=== PATIENT | female | born 1945 | race Caucasian/White ===

== ENCOUNTER 2017-09-08 11:38 | Observation (INO) ==
[2017-09-08] MEDS ORDERED: SALINE FLUSH 10ml SYRINGE IVF PRN (11:54)
[2017-09-08] MEDS ORDERED: NS 1,000 ML IV SCH (12:00)
--- NOTE | 2017-09-08 12:12 | CT Scan Report ---
Indication: cva sx PROCEDURE: CT head/brain wo con: Encounter: Initial Comparison: September 17, 2015 Technique: Axial CT images through the head were performed without contrast. Iterative Reconstruction dose reducing technique was utilized. FINDINGS: The ventricles are of normal size, shape, and contour for the patient's age. There is a small area of new low-attenuation in the left occipital lobe on image #21 measuring 0.8 cm in size. There are scattered areas of low attenuation in the white matter which most likely represent changes from chronic microvascular ischemia. The brainstem, cerebellum, and cerebral hemispheres otherwise have a normal morphology and CT attenuation. There is no evidence of midline displacement. No hemorrhage, mass effect, mass lesions, or edema is evident. The visualized portions of the skull base, midface, and calvarium demonstrate no abnormality. The paranasal sinuses are well aerated and free of significant disease. The tympanic and mastoid cavities appear normal. IMPRESSION: No acute intracranial hemorrhage. New small low attenuation focus in the left occipital lobe could represent acute, subacute or chronic ischemia. MRI can be performed for further evaluation of any acute ischemic process. Results were discussed with Dr. Lucero in the emergency department at 1206 on September 08, 2017, 10 minutes after the conclusion of the exam. .
--- OUTSIDE RECORDS SUMMARY | 2017-09-08 12:41 | External Medical Summary | Referral Summary ---
:1945 Author Organization [facility] Address [address] [place] [address] Care Team Providers Name Role Phone Mitul Dipesh Moreland Primary Care Physician Encounter VC Date(s): 09/04/15 - 09/04/15 [facility] [address] [place] [address]- Discharge Diagnosis: Bilateral sensorineural hearing loss Discharge Disposition: 01-Home or Self Care Attending Physician: Aracelis Iqbal Admitting Physician: Aracelis Iqbal Vital Signs No data available for this section Problem List Condition Effective Dates Status Health Status Informant Hay fever(Confirmed) Active Atopic eczema(Confirmed) Active Cataract(Confirmed) Active Chronic otitis media(Confirmed) Active Chronic sinus infection(Confirmed) Active Depression(Confirmed) Active Essential hypertension Active (disorder)(Confirmed) Hypothyroidism (disorder)(Confirmed) Active Hx of insertion of insulin Active pump(Confirmed) IBS (irritable bowel Active syndrome)(Confirmed) Morbid obesity (disorder)(Confirmed) Active Morbid obesity(Confirmed) Active patient Psoriasis(Confirmed) Active Sleep apnea(Confirmed) Active Tobacco user(Confirmed) Active patient Type II diabetes mellitus uncontrolled Active (finding)(Confirmed) Allergies, Adverse Reactions, Alerts No Known Allergies Medications albuterol 2.5 mg/3 mL (0.083%) inhalation solution 1 vials, NEB, QID, as needed for wheezing Start Date: 10/20/14 Status: Orderedantibiotic antibiotic Start Date: 09/04/15 Status: Ordereddoxepin 100 mg oral capsule 100 mg 1 caps, Oral, Bedtime (once a day), # 30 caps, 5 Refill(s), Pharmacy: [id number],1 caps Oral Bedtime (once a day) Start Date: 05/05/15 Status: OrderedDULoxetine 60 mg oral delayed release capsule 60 mg 1 caps, Oral, Daily, PT. WILL NEED A MED. CK. APPT. PRIOR TO NEEDING ADDITIONAL REFILLS., # 90Each, 1 Refill(s), Pharmacy: [facility] [id number], 1 caps Oral Daily,Instr:PT. WILL NEED A MED. CK. APPT. PRIOR TO NEEDING ADDITIONAL REFILLS. Start Date: 10/28/15 Status: OrderedGlucometer (DME) DME Item One Touch UltraLink - check blood sugars 6-8 times per day; Patient has insulin pump, See Instructions, Supply Start Date: 10/20/14 Status: Orderedinsulin isophane (NPH)-insulin regular SubCutaneous, 0 Refill(s) Start Date: 05/11/15 Status: Orderedlisinopril 20 mg oral tablet 20 mg 1 tabs, Oral, Daily, # 30 tabs, 0 Refill(s) Start Date: 10/28/15 Status: OrderedMiscellaneous DME DME Item Nebulizer Kit misc - nebulizer accessories and machine, See Instructions, Supply Start Date: 10/20/14 Status: OrderedPercocet 5/325 oral tablet 1 tabs, Oral, q4hr, as needed for pain, # 30 tabs, 0 Refill(s) Start Date: 01/22/16 Status: OrderedSynthroid 125 mcg, Oral, Daily Start Date: 09/04/15 Status: OrderedZyrTEC 10 mg oral tablet, chewable 1 tabs, Chewed, Daily Start Date: 10/20/14 Status: Ordered Results No data available for this section Immunizations Vaccine Date Refusal Reason influenza virus vaccine, live 09/18/12 pneumococcal 13-valent conjugate vaccine 05/05/15 tetanus-diphth toxoids (Td) adult/adol 12/11/00 zoster vaccine live 05/05/15 Procedures Procedure Date Related Diagnosis Body Site Incision, deep, with opening of bone cortex (eg, 05/26/15 for osteomyelitis or bone abscess), thorax Colonoscopy 01/06/00 Sigmoidoscopy 11/24/99 Appendectomy Bilateral tubal ligation section Cholecystectomy Hysterectomy Social History Social History Type Response Smoking Status Current every day smoker; Type: Cigarettes; Tobacco use per day : More than 1 pack Assessment and Plan No data available for this section
--- OUTSIDE RECORDS SUMMARY | 2017-09-08 12:42 | External Medical Summary | Referral Summary ---
:1945 Author Organization [facility] Address [address] [place] [address] Care Team Providers Name Role Phone Bauman Dipesh Merly Primary Care Physician Encounter VC Date(s): 11/17/15 - 11/17/15 [facility] [address] [place] [address]- Discharge Diagnosis: Eustachian tube dysfunction Discharge Disposition: 01-Home or Self Care Attending Physician: Ciara Barbosa Admitting Physician: Ciara Barbosa Referring Physician: Ephraim De Leon MD Vital Signs No data available for this [...] day), # 30 caps, 5 Refill(s), Pharmacy: [facility] [id number],1 caps Oral Bedtime (once a day) Start Date: 05/05/15 Status: OrderedDULoxetine 60 mg oral delayed release capsule 60 mg 1 caps, Oral, Daily, PT. WILL NEED A MED. CK. APPT. PRIOR TO NEEDING ADDITIONAL REFILLS., # 90Each, 1 Refill(s), Pharmacy: [facility] [id number], 1 caps Oral Daily,Instr:PT. WILL [...] # 30 tabs, 0 Refill(s) Start Date: 05/26/15 Status: OrderedSynthroid 125 mcg, Oral, Daily Start [...]
--- OUTSIDE RECORDS SUMMARY | 2017-09-08 12:42 | External Medical Summary | Referral Summary ---
:1945 Author Organization [facility] Address [address] [place] [address] Care Team Providers Name Role Phone Mitul Dipesh Moreland Primary Care Physician Encounter VC Date(s): 09/04/15 - 09/04/15 [facility] [address] [place] [address] [place] Discharge Diagnosis: ETD (eustachian tube dysfunction) Discharge Diagnosis: History of hyperbaric oxygen therapy Discharge Diagnosis: Chronic osteomyelitis of jaw Discharge Diagnosis: Bleeding from right ear Discharge Disposition: 01-Home or Self Care Attending Physician: Ephraim De Leon MD Admitting Physician: Ephraim De Leon MD Vital Signs [...] day), # 30 caps, 5 Refill(s), Pharmacy: [facility] [id number],1 caps Oral Bedtime (once a day) Start Date: 05/05/15 Status: OrderedDULoxetine 60 mg oral delayed release capsule 60 mg 1 caps, Oral, Daily, PT. WILL NEED A MED. CK. APPT. PRIOR TO NEEDING ADDITIONAL REFILLS., # 90Each, 1 Refill(s), Pharmacy: [facility] [id number], 1 caps Oral Daily,Instr:PT. [...] Procedures Procedure Date Related Diagnosis Body Site Microsurgical techniques, requiring use of 09/04/15 operating microscope (List separately in addition to code for primary procedure).. Microsurgical techniques, requiring use of 10/30/15 operating microscope (List separately in addition to code for primary procedure).. Tympanostomy (requiring insertion of ventilating 09/04/15 tube), local or topical anesthesia.. Incision, deep, with opening of bone cortex (eg, 05/26/15 for osteomyelitis or bone abscess), thorax Colonoscopy 01/06/00 Sigmoidoscopy 11/24/99 Appendectomy Bilateral tubal ligation section Cholecystectomy Hysterectomy Social History Social History Type Response Smoking Status Current every day smoker; Type: Cigarettes; Tobacco use per day : More than 1 pack Assessment and Plan Extracted from: Title: Office Visit Note Author: Ephraim De Leon MD Date: 09/04/15 Assessment/Plan 1.ETD (eustachian tube dysfunction) Plan Return to clinic in a couple of months for re-evaluation. Water precautions were discussed. I recommend using ear plugs with bathing or showering. Also, the use of over the counter ear drying agents i s contraindicated in the presence of ear tubes or tympanic membrane perforations. 2.Bleeding from right ear 3.History of hyperbaric oxygen therapy 4.Chronic osteomyelitis of jaw
--- OUTSIDE RECORDS SUMMARY | 2017-09-08 12:42 | External Medical Summary | Referral Summary ---
:1945 Author Organization [facility] Address [address] [place] [address] Care Team Providers Name Role Phone Bauman Dipesh Moreland Primary Care Physician Encounter VC Date(s): 06/17/15 - 06/17/15 [facility] [address] [place] [address] [place] Discharge Diagnosis: Osteomyelitis Of Mandible Discharge Diagnosis: Jaw swelling Discharge Diagnosis: Osteonecrosis of mandible Discharge Disposition: 01-Home or Self Care Attending [...] day), # 30 caps, 5 Refill(s), Pharmacy: [facility] [id number],1 caps Oral Bedtime (once a day) Start Date: 05/05/15 Status: OrderedDULoxetine 60 mg oral delayed release capsule 60 mg 1 caps, Oral, Daily, PT. WILL NEED A MED. CK. APPT. PRIOR TO NEEDING ADDITIONAL REFILLS., # 90Each, 1 Refill(s), Pharmacy: [facility] [id number], 1 caps Oral Daily,Instr:PT. [...] Note Author: Ephraim De Leon MD Date: 06/17/15 Assessment/Plan 1.Osteomyelitis Of Mandible 2.Osteonecrosis of mandible She has an appointment with Dr. Marquez tomorrow. I gave her the reports for his evaluation. With the necrotic bone noted I do not recommend medical treatment alone. I do recommend she be considered for mandibulectomy and microvascular fibular reconstruction. A detailed discussion of the risks, benefits, and limitations of the procedure was performed with the patient. The patient had the opportunity to ask questions and appeared to understand the pertinent issues. I will also await Dr. Goddard opinion regarding her management. 3.Jaw swelling
--- OUTSIDE RECORDS SUMMARY | 2017-09-08 12:42 | External Medical Summary | Referral Summary ---
:1945 Author Organization [facility] Address [address] [place] [address] Care Team Providers Name Role Phone Bauman Dipesh Moreland Primary Care Physician Encounter VC Date(s): 11/17/15 - 11/17/15 [facility] [address] [place] [address] [place] Discharge Disposition: 01-Home or Self Care Attending [...] day), # 30 caps, 5 Refill(s), Pharmacy: [facility] 2007,1 caps Oral Bedtime (once a day) Start Date: 05/05/15 Status: OrderedDULoxetine 60 mg oral delayed release capsule 60 mg 1 caps, Oral, Daily, PT. WILL NEED A MED. CK. APPT. PRIOR TO NEEDING ADDITIONAL REFILLS., # 90Each, 1 Refill(s), Pharmacy: [facility] [id number], 1 caps Oral Daily,Instr:PT. [...]
--- OUTSIDE RECORDS SUMMARY | 2017-09-08 12:42 | External Medical Summary | Referral Summary ---
:1945 Author Organization [facility] Address [address] [place] [address] Care Team Providers Name Role Phone Mitul Dipesh Moreland Primary Care Physician Encounter VC Date(s): 09/04/15 - 09/04/15 [facility] [address] [place] [address] [place] Discharge Diagnosis: ETD (eustachian [...] pump(Confirmed) IBS (irritable bowel Active syndrome)(Confirmed) Morbid obesity(Confirmed) Active patient Morbid obesity (disorder)(Confirmed) Active Psoriasis(Confirmed) Active Sleep apnea(Confirmed) Active Tobacco user(Confirmed) Active patient Type II diabetes mellitus uncontrolled Active (finding)(Confirmed) Allergies, Adverse Reactions, Alerts No Known Allergies Medications albuterol 2.5 mg/3 mL (0.083%) inhalation solution 1 vials, NEB, QID, as needed for wheezing Start Date: 10/20/14 Status: Orderedantibiotic antibiotic Start Date: 09/04/15 Status: OrderedCiprodex drops, as needed Start Date: 09/04/15 Status: Orderedclindamycin 300 mg oral capsule 300 mg 1 caps, Oral, q8hr, # 30 caps, 0 Refill(s), Pharmacy: [facility] [id number], 1 caps Oral q8hr Start Date: 06/03/15 Status: Ordereddoxepin 100 mg oral capsule 100 mg 1 caps, Oral, Bedtime (once a day), # 30 caps, 5 Refill(s), Pharmacy: [facility] 2428,1 caps Oral Bedtime (once a day) Start Date: 05/05/15 Status: OrderedDULoxetine 60 mg oral delayed release capsule See Instructions, TAKE ONE CAPSULE BY MOUTH ONCE DAILY, # 30 caps, 2 Refill(s), eRx: [facility] [id number], TAKE ONE CAPSULE BY MOUTH ONCE DAILY Start Date: 07/09/15 Status: OrderedGlucometer (DME) DME Item One Touch UltraLink - check blood sugars 6-8 times per day; Patient has insulin pump, See Instructions, Supply Start Date: 10/20/14 Status: Orderedinsulin isophane (NPH)-insulin regular SubCutaneous, 0 Refill(s) Start Date: 05/11/15 Status: Orderedlisinopril 10 mg oral tablet 10 mg 1 tabs, Oral, Daily, # 30 tabs, 0 Refill(s) Start Date: 03/27/15 Status: OrderedMiscellaneous DME DME Item Nebulizer Kit misc - nebulizer accessories and machine, See Instructions, Supply Start Date: 10/20/14 Status: OrderedoxyCODONE-acetaminophen 7.5 mg-325 mg oral tablet 1 tabs, Oral, QID, PRN, # 30 tabs, 0 Refill(s) Start Date: 05/05/15 Status: OrderedPercocet 5/325 oral tablet 1 tabs, [...] vaccine, live 09/18/12 pneumococcal 13-valent conjugate vaccine 6/30/15 tetanus-diphth toxoids (Td) adult/adol 12/11/00 zoster vaccine [...]
--- OUTSIDE RECORDS SUMMARY | 2017-09-08 12:42 | External Medical Summary | Referral Summary ---
:1945 Author Organization [facility] Address [address] [place] [address] Care Team Providers Name Role Phone Dipesh Bauman Primary Care Physician Encounter VC Date(s): 05/11/15 - 05/11/15 [facility] [address] [place] [address]- [place] Discharge Diagnosis: Diabetes Discharge Diagnosis: Osteomyelitis of jaw Discharge Diagnosis: Preoperative clearance Discharge Diagnosis: Swelling of mandible Discharge Disposition: 01-Home or Self Care Attending Physician: Ephraim De Leon MD Admitting Physician: Ephraim De Leon MD Referring Physician: Dipesh Bauman MD Vital Signs Most recent to oldest [Reference Range]: 1 Temperature Tympanic [36.6-38.1 degC] 35.9 degC *LOW* (05/11/15 1:35 PM) Problem List Condition Effective Dates Status Health [...] day), # 30 caps, 5 Refill(s), Pharmacy: [facility] [id number],1 caps Oral Bedtime (once a day) Start Date: 05/05/15 Status: OrderedDULoxetine 60 mg oral delayed release capsule 60 mg 1 caps, Oral, Daily, PT. WILL NEED A MED. CK. APPT. PRIOR TO NEEDING ADDITIONAL REFILLS., # 90Each, 1 Refill(s), Pharmacy: [facility] 2428, 1 caps Oral Daily,Instr:PT. [...] Note Author: Ephraim De Leon MD Date: 05/12/15 Assessment/Plan 1.Swelling of mandible I counseled the patient that a biopsy and jaw culture is needed for further therapy guidance. I recommended a transoral approach to the right mandible with biopsy and possible curettage. A detailed discussion of the risks, benefits, and limitations of the procedure was performed with the patient. The patient had the opportunity to ask questions and appeared to understand the pertinent issues. 2.Osteomyelitis of jaw 3.Diabetes Preoperative clearance Orders: ciprofloxacin, 500 mg 1 tabs, Oral, q12hr, X 10 days, # 20 tabs, 1 Refill(s), Pharmacy: [facility] [id number], 1 tabs Oral q12hr,x10 days
--- OUTSIDE RECORDS SUMMARY | 2017-09-08 12:42 | External Medical Summary | Referral Summary ---
:1945 Author Organization [facility] Address [address] [place] [address] [place] [address] Care Team Providers Name Role Phone Dipesh Bauman Primary Care Physician Encounter VC Date(s): 08/04/15 - 08/04/15 [facility] [address] [place] [address] [place] [address] [place] Discharge Disposition: 01-Home or Self Care Attending Physician: Kailash Rico MD Admitting Physician: Kailash Rico MD Vital Signs No data available for [...] day), # 30 caps, 5 Refill(s), Pharmacy: [id number],1 caps Oral Bedtime (once a day) Start Date: 05/05/15 Status: OrderedDULoxetine 60 mg oral delayed release capsule 60 mg 1 caps, Oral, Daily, PT. WILL NEED A MED. CK. APPT. PRIOR TO NEEDING ADDITIONAL REFILLS., # 90Each, 1 Refill(s), Pharmacy: [facility] 2428, 1 caps Oral [...]
--- OUTSIDE RECORDS SUMMARY | 2017-09-08 12:42 | External Medical Summary | Referral Summary ---
:1945 Author Organization [facility] Address [address] [place] [address] [place] [address] Care Team Providers Name Role Phone Dipesh Bauman Primary Care Physician Encounter VC Date(s): 09/01/15 - 09/01/15 [facility] [address] [place] [address] [place] [address] [place] Discharge Disposition: 01-Home [...] day), # 30 caps, 5 Refill(s), Pharmacy: [facility] [id number],1 caps Oral Bedtime (once a day) Start Date: 05/05/15 Status: OrderedDULoxetine 60 mg oral delayed release capsule 60 mg 1 caps, Oral, Daily, PT. WILL NEED A MED. CK. APPT. PRIOR TO NEEDING ADDITIONAL REFILLS., # 90Each, 1 Refill(s), Pharmacy: [facility] 2428, 1 caps Oral Daily,Instr:PT. [...]
--- OUTSIDE RECORDS SUMMARY | 2017-09-08 12:42 | External Medical Summary | Referral Summary ---
:1945 Author Organization [facility] Address [address] [place] [address] [place] [address] Care Team Providers Name Role Phone Dipesh Bauman Primary Care Physician Encounter VC Date(s): 07/28/15 - 07/28/15 [facility], [address] [place] [address] [place] Discharge Disposition: 01-Home [...] day), # 30 caps, 5 Refill(s), Pharmacy: [facility]14,1 caps Oral Bedtime (once a day) Start Date: 05/05/15 Status: OrderedDULoxetine 60 mg oral delayed release capsule 60 mg 1 caps, Oral, Daily, PT. WILL NEED A MED. CK. APPT. PRIOR TO NEEDING ADDITIONAL REFILLS., # 90Each, 1 Refill(s), Pharmacy: [facility] 2428, 1 caps Oral Daily,Instr:PT. WILL [...]
--- OUTSIDE RECORDS SUMMARY | 2017-09-08 12:42 | External Medical Summary | Referral Summary ---
:1945 Author Organization [facility] Address [address] [place] [address] Care Team Providers Name Role Phone Bauman Dipesh Moreland Primary Care Physician Encounter VC Date(s): 02/16/16 - 02/16/16 [facility] [address] [place] [address] [place] Discharge Disposition: 01-Home or [...] day), # 30 caps, 5 Refill(s), Pharmacy: [facility] 0823,1 caps Oral Bedtime (once a day) Start Date: 05/05/15 Status: OrderedDULoxetine 60 mg oral delayed release capsule 60 mg 1 caps, Oral, Daily, PT. WILL NEED A MED. CK. APPT. PRIOR TO NEEDING ADDITIONAL REFILLS., # 90Each, 1 Refill(s), Pharmacy: [facility] 2428, 1 caps Oral Daily,Instr:PT. [...]
--- OUTSIDE RECORDS SUMMARY | 2017-09-08 12:45 | External Medical Summary | Referral Summary ---
:1945 Author Organization [facility] Address [address] [place] [address] Care Team Providers Name Role Phone Mitul Dipesh Moreland Primary Care Physician Encounter VC Date(s): 05/26/15 - 05/26/15 [facility] [address] [place] [address] [place] Discharge Diagnosis: Jaw mass Discharge Disposition: 01-Home or Self Care Attending Physician: Ephraim De Leon MD Admitting Physician: Ephraim De Leon MD Vital Signs Most recent to oldest [Reference Range]: 1 Temperature Temporal Artery [36.3-37.8 degC] 36.4 degC (05/26/15 8:15 AM) Peripheral Pulse Rate [60-100 bpm] 81 bpm (05/26/15 8:15 AM) Respiratory Rate [14-20 br/min] 16 br/min (05/26/15 8:15 AM) Blood Pressure [90-140/60-90 mmHg] 176/103 mmHg *HI* (05/26/15 8:15 AM) SpO2 93 % (05/26/15 8:15 AM) Problem List Condition Effective Dates Status Health [...] day), # 30 caps, 5 Refill(s), Pharmacy: [facility] [id number],1 caps Oral Bedtime (once a day) Start Date: 05/05/15 Status: OrderedDULoxetine 60 mg oral delayed release capsule 60 mg 1 caps, Oral, Daily, PT. WILL NEED A MED. CK. APPT. PRIOR TO NEEDING ADDITIONAL REFILLS., # 90Each, 1 Refill(s), Pharmacy: [facility]28, 1 caps Oral Daily,Instr:PT. WILL [...] Procedures Procedure Date Related Diagnosis Body Site Excision of lesion of mucosa and submucosa, 05/26/15 vestibule of mouth; with complex repair Excision of lesion of mucosa and submucosa, 05/26/15 vestibule of mouth; with complex repair.. Incision, deep, with opening of bone cortex (eg, 05/26/15 for osteomyelitis or bone abscess), thorax Colonoscopy 01/06/00 Sigmoidoscopy 11/24/99 Appendectomy Bilateral tubal ligation section Cholecystectomy Hysterectomy Social History Social History Type Response Smoking Status Current every day smoker; Type: Cigarettes; Tobacco use per day : More than 1 pack Assessment and Plan Extracted from: Title: Ambulatory Patient Education Author: Ivonne Coyle RN Date: 05/26/15 [facility] [place] [phone] Post Operative Instructions: Call Dr. De Leon's office on Monday, June 01, 2015 for biopsy results and instructions. Activities Ambulate _X_ Unrestricted __ On Crutches as tolerated Yes or No - Weight Bearing Exercise __ None _X_ Light __ Unrestricted Other: Do not strain or lift more than _ lbs. for _ weeks. Diet __ Liquids (Jell-O, soups, etc., if you are nauseated) _X_ Begin with liquids and light foods then progress to regular diet. __ Regular diet __ No alcoholic beverages for 24 hours or while taking pain medication. Personal hygiene __ Bath __ Shower after __ hours __ Sponge Bath __ [facility]s [facility] __ Remove dressing in ___hours __ Change dressing as necessary. __ Keep dressing clean and dry. __ Do not change dressing until you see your doctor. __ Elevate affected area above level of your heart. __ Apply ice to area for ___ hours __ Avoid blowing nose __ Keep water out of ears __ Wear sling as directed. __ Remove drain in ___ hours __ Vaginal rest for ____ days. __ Other: If any problems occur or if you have any further questions, please contact your physician. In an emergency, call [phone] ([phone]), if you cannot reach your physician. If you find that you cannot contact your physician, but feel that your signs and symptoms warrant a physicians attention, go to an Emergency room which is the closest to you. Activities: Call your surgeon promptly if you have: __ Take Tylenol/Advil as needed for discomfort _X_ If fever over _ 102.5 F__ _X_ Prescription given for discomfort. Use as directed. __ Pain not relieved by pain medication __ Prescription given for antibiotic. Follow instructions __ Bleeding or unexpected drainage from on label. Continue taking until medication is gone. incision. _X_ Resume routine medications. _X_ Extreme redness or swelling around incision. Other: __ Inability to urinate by: _X_ Next dose of pain medicine may be given at _ _X_ Persistent nausea and vomiting. (Take with food to prevent stomach upset.) __ Ear drainage more than _ Days __ Stool softener __ Cough develops or difficulty breathing. Do NOT drive or operate hazardous machinery for 24 hours or while taking pain medication. Do not sign any important documents or make important decisions for 24 hours following surgery. When taking pain medicine, be careful as you walk or climb stairs as dizziness is not unusual. Check temperature every four hours during the day for two days. No follow up information was provided.
--- OUTSIDE RECORDS SUMMARY | 2017-09-08 12:45 | External Medical Summary | Referral Summary ---
:1945 Author Organization [facility] Address [address] [place] [address] [place] [address] Care Team Providers Name Role Phone Dipesh Bauman Primary Care Physician Encounter VC Date(s): 10/28/15 - 10/28/15 [facility] [place] [address] [place] Discharge Disposition: 01-Home or Self Care Attending Physician: Dipesh Bauman MD Admitting Physician: Dipesh Bauman MD Vital Signs Most recent to oldest [Reference Range]: 1 Peripheral Pulse Rate [60-100 bpm] 95 bpm (10/28/15 3:44 PM) Blood Pressure [90-140/60-90 mmHg] 174/88 mmHg *HI* (10/28/15 3:44 PM) SpO2 95 % (10/28/15 3:44 PM) Problem List Condition Effective Dates Status [...] day), # 30 caps, 5 Refill(s), Pharmacy: [id number],1 caps Oral Bedtime (once a day) Start Date: 05/05/15 Status: OrderedDULoxetine 60 mg oral delayed release capsule 60 mg 1 caps, Oral, Daily, PT. WILL NEED A MED. CK. APPT. PRIOR TO NEEDING ADDITIONAL REFILLS., # 90Each, 1 Refill(s), Pharmacy: [facility] 2428, 1 caps Oral Daily,Instr:PT. [...]
--- OUTSIDE RECORDS SUMMARY | 2017-09-08 12:46 | External Medical Summary | Referral Summary ---
:1945 Author Organization [facility] Address [address] [place] [address] Care Team Providers Name Role Phone Bauman Dipesh Moreland Primary Care Physician Encounter VC Date(s): 06/03/15 - 06/03/15 [facility] [address] [place] [address]- [place] Discharge Diagnosis: Osteomyelitis Of Mandible Discharge Diagnosis: Chronic cellulitis Discharge Diagnosis: Jaw swelling Discharge Disposition: 01-Home or Self Care Attending [...] day), # 30 caps, 5 Refill(s), Pharmacy: [facility] [id number],1 caps Oral Bedtime (once a day) Start Date: 05/05/15 Status: OrderedDULoxetine 60 mg oral delayed release capsule 60 mg 1 caps, Oral, Daily, PT. WILL NEED A MED. CK. APPT. PRIOR TO NEEDING ADDITIONAL REFILLS., # 90Each, 1 Refill(s), Pharmacy: [facility] 2428, 1 caps Oral [...] Note Author: Ephraim De Leon MD Date: 06/03/15 Assessment/Plan 1.Chronic cellulitis 2.Jaw swelling Osteomyelitis Of Mandible At this point I recommended to the patient that she have a reevaluation by Dr. Marquez. Her clinical presentation is very unusual. She has no trauma history or radiation ex posure or medical adverse effect history. I recommended a head and neck bone scan be performed for evaluation of the extent of osteomyelitis. Return to clinic after her consult with Dr. Marquez.
--- OUTSIDE RECORDS SUMMARY | 2017-09-08 12:46 | External Medical Summary | Referral Summary ---
:1945 Author Organization [facility] Address [address] [place] [address] Care Team Providers Name Role Phone Bauman Dipesh Moreland Primary Care Physician Encounter VC Date(s): 08/16/16 - 08/16/16 [facility] [address] [place] [address] [place] Discharge Disposition: 01-Home or [...] day), # 30 caps, 5 Refill(s), Pharmacy: [facility] 2302,1 caps Oral Bedtime (once a day) Start Date: 05/05/15 Status: OrderedDULoxetine 60 mg oral delayed release capsule See Instructions, TAKE ONE CAPSULE BY MOUTH ONCE DAILY, # 90 caps, eRx: [facility] 2428, TAKEONE CAPSULE BY MOUTH ONCE DAILY Start Date: 05/10/16 Status: OrderedGlucometer (DME) DME Item One [facility] [...]
--- OUTSIDE RECORDS SUMMARY | 2017-09-08 12:46 | External Medical Summary | Referral Summary ---
:1945 Author Organization [facility] Address [address] [place] [address] [place] [address] Care Team Providers Name Role Phone Dipesh Bauman Primary Care Physician Encounter VC Date(s): 08/18/15 - 08/18/15 [facility] [address] [place] [address] [place] [phone] [place] Discharge Disposition: 01-Home [...] day), # 30 caps, 5 Refill(s), Pharmacy: [facility] 2713,1 caps Oral Bedtime (once a day) Start Date: 05/05/15 Status: OrderedDULoxetine 60 mg oral delayed release capsule 60 mg 1 caps, Oral, Daily, PT. WILL NEED A MED. CK. APPT. PRIOR TO NEEDING ADDITIONAL REFILLS., # 90Each, 1 Refill(s), Pharmacy: [facility] 2428, 1 caps Oral Daily,Instr:PT. WILL [...]
--- OUTSIDE RECORDS SUMMARY | 2017-09-08 12:46 | External Medical Summary | Referral Summary ---
:1945 Author [facility] Address [address] [place] [address] [place] [address] Care Team Providers Name Role Phone Dipesh Bauman Primary Care Physician Encounter VC Date(s): 05/07/15 - 05/07/15 [facility] [address] [place] [address]- Discharge Diagnosis: Bone mass Discharge Diagnosis: Acute osteomyelitis Discharge Disposition: 01-Home or Self Care Attending Physician: Dipesh Bauman MD Admitting Physician: Dipesh Bauman MD Vital Signs No data available for [...] day), # 30 caps, 5 Refill(s), Pharmacy: [facility] 4050,1 caps Oral Bedtime (once a day) Start Date: 05/05/15 Status: OrderedDULoxetine 60 mg oral delayed release capsule 60 mg 1 caps, Oral, Daily, PT. WILL NEED A MED. CK. APPT. PRIOR TO NEEDING ADDITIONAL REFILLS., # 90Each, 1 Refill(s), Pharmacy: [facility] 2428, 1 caps Oral Daily,Instr:PT. [...] Extracted from: Title: Ambulatory Patient Education Author: Dipesh aBuman MD Date: 05/09/15 [facility] Bone and Joint Infections Joint infections are called septic or infectious arthritis. An infected joint may damage cartilage and tissue very quickly. This may destroy the joint. Bone infections (osteomyelitis ) may last for year s. Joints may become stiff if left untreated. Bacteria are the most common cause. Other causes include viruses and fungi, but these are more rare. Bone and joint infections usually come from injury or i nfection elsewhere in your body; the germs are carried to your bones or joints through the bloodstream. CAUSES Blood-carried germs from an infection elsewhere in your body can eventually spread to a bone or joint. The germ staphylococcus is the most common cause of both osteomyelitis and septic arthritis. An injury can introduce germs into your bones or joints. SYMPTOMS Weight loss. Tiredness. Chills and fever. Bone or joint pain at rest and with activity. Tenderness when touching the area or bending the joint. Refusal to bear weight on a leg or inability to use an arm due to pain. Decreased range of motion in a joint. Skin redness, warmth, and tenderness. Open skin sores and drainage. RISK FACTORS Children, the elderly, and those with weak immune systems are at increased risk of bone and joint infections. It is more common in people with HIV infections and with people on chemotherapy. People are also at increased risk if they have surgery where metal implants are used to stabilize the bone. Plates, screws, or artificial joints provide a surface that bacteria can stick on. Such a growth of bacte nuvia is called biofilm. The biofilm protects bacteria from antibiotics and bodily defenses. This allows germs to multiply. Other reasons for increased risks include: Having previous surgery or injury of a bone or joint. Being on high-dose corticosteroids and immunosuppressive medications that weaken your body's resistance to germs. Diabetes and long-standing diseases. Use of intravenous street drugs. Being on hemodialysis. Having a history of urinary tract infections. Removal of your spleen (splenectomy ). This weakens your immunity. Chronic viral infections such as HIV or AIDS. Lack of sensation such as paraplegia, quadriplegia, or spina bifida. DIAGNOSIS Increased numbers of white blood cells in your blood may indicate infection. Some times your caregivers are able to identify the infecting germs by testing your blood. Inflammatory markers present in your bloodstream such as an erythrocyte sedimentation rate (ESR or sed rate ) or c-reactive protein (CRP) can be indicators of deep infection. Bone scans and X-ray exams are necessary for diagnosing osteomyelitis. They may help your caregiver find the infected areas. Other studies may give more detailed information. They may help detect f luid collections around a joint, abnormal bone surfaces, or be useful in diagnosing septic arthritis. They can find soft tissue swelling and find excess fluid in an infected joint or the adjacent bone. These tests include: Ultrasound. CT (computerized tomography ). MRI (magnetic resonance imaging ). The best test for diagnosing a bone or joint infection is an aspiration or biopsy. Your caregiver will usually use a local anesthetic. He or she can then remove tissue from a bone injury or use a n eedle to take fluids from an infected joint. A local anesthetic medication numbs the area to be biopsied. Often biopsies are done in the operating room under general anesthesia. This means you will be a sleep during the procedure. Tests performed on these samples can identify an infection. TREATMENT Treatment can help control long-standing infections, but infections may come back. Infections can infect any bone or joint at any age. Bone and joint infections are rarely fatal. Bone infection left untreated can become a never-ending infection. It can spread to other areas of your body. It may eventually cause bone . Reduced limb or joint function can result. In sever e cases, this may require removal of a limb. Spinal osteomyelitis is very dangerous. Untreated, it may damage spinal nerves and cause . The most common complication of septic arthritis is osteoarthritis with pain and decreased range of motion of the joint. Some forms of treatment may include: If the infection is caused by bacteria, it is generally treated with antibiotics. You will likely receive the drugs through a vein (intravenously ) for anywhere from 2 to 6 weeks. In some cases, es pecially with children, oral antibiotics following an initial intravenous dose may be effective. The treatment you receive depends on the: Type of bacteria. Location of the infection. Type of surgery that might be done. Other health conditions or issues you might have. Your caregiver may drain soft tissue abscesses or pockets of fluid around infected bones or joints. If you have septic arthritis, your caregiver may use a needle to drain pus from the joint on a da asia basis. He or she may use an arthroscope to clean the joint or may need to open the joint surgically to remove damaged tissue and infection. An arthroscope is an instrument like a thin lighted telescope. It can be used to look inside the joint. Surgery is usually needed if the infection has become long-standing. It may also be needed if there is hardware (such as metal plates, screws, or artificial joints) inside the patient. Sometimes a bone or muscle graft is needed to fill in the open space. This promotes growth of new tissues and better blood flow to the area. PREVENTION Clean and disinfect wounds quickly to help prevent the start of a bone or joint infection. Get treatment for any infections to prevent spread to a bone or joint. Do not smoke. Smoking decreases healing rates of bone and predisposes to infection. When given medications that suppress your immune system, use them according to your caregiver's instructions. Do not take more than prescribed for your condition. Take good care of your feet and skin, especially if you have diabetes, decreased sensation or circulation problems. SEEK IMMEDIATE MEDICAL CARE IF: You cannot bear weight on a leg or use an arm, especially following a minor injury. This can be a sign of bone or joint infection. You think you may have signs or symptoms of a bone or joint infection. Your chance of getting rid of an infection is better if treated early. Document Released: 10/23/2006 Document Revised: 01/14/2013 Document Reviewed: 09/22/2010 [facility] Patient Information 2014 [employer]. No follow up information was provided. Extracted from: Title: Office Visit Note Author: Dipesh Bauman MD Date: 05/07/15 Assessment/Plan Acute osteomyelitis Restart antibiotics and refer to ENT. Ordered: Office Visit Level 3 Est 65855 Bone mass Ordered: Office Visit Level 3 Est 68625
--- OUTSIDE RECORDS SUMMARY | 2017-09-08 12:47 | External Medical Summary | Referral Summary ---
:1945 Author Organization [facility] Address [address] [place] [address] [place] [id number] Care Team Providers Name Role Phone Dipesh Bauman Primary Care Physician Encounter VC Date(s): 05/05/15 - 05/05/15 [facility] [place] [phone] [place] Discharge Diagnosis: Need for pneumococcal vaccination Discharge Diagnosis: Need for zoster vaccine Discharge Diagnosis: Jaw Pain Discharge Disposition: 01-Home or Self Care Attending Physician: Dipesh Bauman MD Admitting Physician: Dipesh Bauman MD Vital Signs Most recent to oldest [Reference Range]: 1 Blood Pressure [90-140/60-90 mmHg] 152/90 mmHg *HI* (05/05/15 10:22 AM) Problem List Condition Effective Dates Status [...] day), # 30 caps, 5 Refill(s), Pharmacy: [id number],1 caps Oral Bedtime (once a day) Start Date: 05/05/15 Status: OrderedDULoxetine 60 mg oral delayed release capsule 60 mg 1 caps, Oral, Daily, PT. WILL NEED A MED. CK. APPT. PRIOR TO NEEDING ADDITIONAL REFILLS., # 90Each, 1 Refill(s), Pharmacy: [id number], 1 caps Oral Daily,Instr:PT. [...] Daily Start Date: 10/20/14 Status: Ordered Results Hematology Most recent to oldest [Reference Range]: 1 WBC [4.8-10.8 10*3/uL] 8.6 10*3/uL (05/05/15 11:30 AM) RBC [4.00-5.20 10*6/uL] 5.07 10*6/uL (05/05/15 11:30 AM) Hgb [12.0-16.0 gm/dL] 13.9 gm/dL (05/05/15 11:30 AM) Hct [37.0-47.0 %] 44.2 % (05/05/15 11:30 AM) MCV [82.0-99.0 fL] 87.2 fL (05/05/15:30 AM) MCH [27.0-32.0 pg] 27.4 pg (05/05/1530 AM) MCHC [32.0-36.0 gm/dL] 31.4 gm/dL *LOW* (05/05/1530 AM) RDW [11.5-14.5 %] 14.0 % (05/05/15 11:30 AM) Platelet [150-400 10*3/uL] 309 10*3/uL (05/05/15 11:30 AM) MPV [8.8-14.8 fL] 9.9 fL (05/05/1530 AM) Immature Granulocytes [0.0-1.0 %] 0.2 % (05/05/1530 AM) Neutrophils [51-75 %] 66 % (05/05/1530 AM) Lymphocytes [20-46 %] 24 % (05/05/15 11:30 AM) Monocytes [4-11 %] 7 % (05/05/15 11:30 AM) Eosinophils [0-4 %] 3 % (05/05/1530 AM) Basophils [0-2 %] 1 % (05/05/15 11:30 AM) Neutro Absolute [1.90-7.00 10*3] 5.65 10*3 (05/05/15 11:30 AM) Lymph Absolute [0.80-3.30 10*3] 2.04 10*3 (05/05/15 11:30 AM) Griggs Absolute [0.30-1.00 10*3] 0.59 10*3 (05/05/15 11:30 AM) Eos Absolute [0.00-0.50 10*3] 0.28 10*3 (05/05/15 11:30 AM) Baso Absolute [0.00-0.20 10*3] 0.04 10*3 (05/05/15 11:30 AM) Chemistry Most recent to oldest [Reference Range]: 1 Sodium Lvl [135-144 mEq/L] 140 mEq/L (05/05/15 11:30 AM) Potassium Lvl [3.5-5.2 mEq/L] 3.6 mEq/L (05/05/15 11:30 AM) Chloride [99-111 mEq/L] 102 mEq/L (05/05/15 11:30 AM) CO2 [22-31 mEq/L] 32 mEq/L *HI* (05/05/15 11:30 AM) AGAP [3-20] 6 (05/05/15 11:30 AM) BUN [10-20 mg/dL] 9 mg/dL *LOW* (05/05/1530 AM) Glucose Lvl [70-99 mg/dL] 76 mg/dL (05/05/15:30 AM) Creatinine Lvl [0.57-1.11 mg/dL] 0.64 mg/dL (05/05/1530 AM) eGFR [>60 mL/min] >60 mL/min 1 (05/05/15:30 AM) Calcium Lvl [8.9-10.5 mg/dL] 10.0 mg/dL (05/05/15 11:30 AM) Albumin Lvl [3.4-4.8 gm/dL] 4.0 gm/dL (05/05/15 11:30 AM) Total Protein [6.2-8.1 gm/dL] 8.1 gm/dL (05/05/15 11:30 AM) Globulin [1.8-4.0 gm/dL] 4.1 gm/dL *HI* (05/05/15 11:30 AM) ALT [0-55 U/L] 10 U/L (05/05/15 11:30 AM) AST [5-34 U/L] 14 U/L (05/05/15 11:30 AM) Alk Phos [40-150 U/L] 105 U/L (05/05/15 11:30 AM) Bili Total [0.2-1.2 mg/dL] 0.5 mg/dL (05/05/15 11:30 AM) Chol [0-199 mg/dL] 166 mg/dL (05/05/15 11:30 AM) Trig [0-149 mg/dL] 75 mg/dL (05/05/15 11:30 AM) HDL [40-84 mg/dL] 58 mg/dL (05/05/15 11:30 AM) LDL [0-130 mg/dL] 93 mg/dL (05/05/15 11:30 AM) VLDL Cholesterol [0-28 mg/dL] 15 mg/dL (05/05/15 11:30 AM) Cardiac Risk [0.0-5.0] 2.9 (05/05/15 11:30 AM) 1Result Comment: Multiply eGFR results by 1.21 for race. Immunizations Vaccine Date Refusal Reason influenza virus [...] from: Title: Ambulatory Patient Education Author: Dipesh Bauman MD Date: 05/12/15 Allergy Immunization Schedule, Adult Influenza vaccine. All adults should be immunized every year. All adults, including women and people with hives-only allergy to eggs can receive the inactivated influenza (IIV) vaccine. Adults aged 1849 years can receive the recombinant influenza (TAZ) vaccine. The TAZ vaccine does not contain any egg protein. Adults aged 65 years or older can receive the standard-dose IIV or the high-dose IIV. Tetanus, diphtheria, and acellular pertussis (Td, Tdap) vaccine. women should receive 1 dose of Tdap vaccine during each . The dose should be obtained regardless of the length of time since the last dose. Immunization is preferred during the 27th to 36th week of gestation. An adult who has not previously received Tdap or who does not know his or her vaccine status should receive 1 dose of Tdap. This initial dose should be followed by tetanus and diphtheria toxoids (Td) booster doses every 10 years. Adults with an unknown or incomplete history of completing a 3-dose immunization series with Td-containing vaccines should begin or complete a primary immunization series including a Tdap dose. Adults should receive a Td booster every 10 years. Varicella vaccine. An adult without evidence of immunity to varicella should receive 2 doses or a second dose if he or she has previously received 1 dose. females who do not have evidence of immunity should receive the first dose after . This first dose should be obtained before leaving the health care facility. The second dose pura uld be obtained 48 weeks after the first dose. Human papillomavirus (HPV) vaccine. Females aged 1326 years who have not received the vaccine previously should obtain the 3-dose series. The vaccine is not recommended for use in females. However, testing is not needed before receiving a dose. If a female is found to be after receiving a dose, no treatme nt is needed. In that case, the remaining doses should be delayed until after the . Males aged 1321 years who have not received the vaccine previously should receive the 3-dose series. Males aged 2226 years may be immunized. Immunization is recommended through the age of 26 years for any male who has sex with males and did not get any or all doses earlier. Immunization is recommended for any person with an immunocompromised condition through the age of 26 years if he or she did not get any or all doses earlier. During the 3-dose series, the second dose should be obtained 48 weeks after the first dose. The third dose should be obtained 24 weeks after the first dose and 16 weeks after the second dose. Zoster vaccine. One dose is recommended for adults aged 60 years or older unless certain conditions are present. Measles, mumps, and rubella (MMR) vaccine. Adults born before 1954 generally are considered immune to measles and mumps. Adults born in 1954 or later should have 1 or more doses of MMR vaccine unless there is a contraindication to the vaccine or there is laboratory evidence of immunity to each of the three diseases. A routine second dose of MMR vaccine should be obtained at least 28 days after the first dose for students attending postsecondary schools, health care workers, or international travelers. People who received inactivated measles vaccine or an unknown type of measles vaccine during should receive 2 doses of MMR vaccine. People who received inactivated mumps vaccine or an unknown type of mumps vaccine before 1978 and are at high risk for mumps infection should consider immunization with 2 doses of MMR vaccine. For females of childbearing age, rubella immunity should be determined. If there is no evidence of immunity, females who are not should be vaccinated. If there is no evidence of immunity, females who are should delay immunization until after . Unvaccinated health care workers born before [birth year] who lack laboratory evidence of measles, mumps, or rubella immunity or laboratory confirmation of disease should consider measles and mumps immuni zation with 2 doses of MMR vaccine or rubella immunization with 1 dose of MMR vaccine. Pneumococcal 13-valent conjugate (PCV13) vaccine. When indicated, a person who is uncertain of his or her immunization history and has no record of immunization should receive the PCV13 vaccine. An adult aged 19 years or older who has certain medical conditions and has not been previously immunized should receive 1 dose of PCV13 vaccine. This PCV13 should be followed with a dose of pneumo coccal polysaccharide (PPSV23) vaccine. The PPSV23 vaccine dose should be obtained at least 8 weeks after the dose of PCV13 vaccine. An adult aged 19 years or older who has certain medical conditions and previously received 1 or more doses of PPSV23 vaccine should receive 1 dose of PCV13. The PCV13 vaccine dose should be obtain ed 1 or more years after the last PPSV23 vaccine dose. Pneumococcal polysaccharide (PPSV23) vaccine. When PCV13 is also indicated, PCV13 should be obtained first. All adults aged 65 years and older should be immunized. An adult younger than age 65 years who has certain medical conditions should be immunized. Any person who resides in a detention or long-term care facility should be immunized. An adult smoker should be immunized. People with an immunocompromised condition and certain other conditions should receive both PCV13 and PPSV23 vaccines. People with human immunodeficiency virus (HIV) infection should be immunized as soon as possible after diagnosis. Immunization during chemotherapy or radiation therapy should be avoided. Routine use of PPSV23 vaccine is not recommended for [place] Indians, [place] Natives, or people younger than 65 years unless there are medical conditions that require PPSV23 vaccine. When indicated, people who have unknown immunization and have no record of immunization should receive PPSV23 vaccine. One-time revaccination 5 years after the first dose of PPSV23 is recommended for people aged 1964 years who have chronic kidney failure, nephrotic syndrome, asplenia, or immunocompromised conditions. People who received 12 doses of PPSV23 before age 65 years should receive another dose of PPSV23 vaccine at age 65 years or later if at least 5 years have passed since the previous dose. Doses of PPSV23 are not needed for people immunized with PPSV23 at or after age 65 years. Meningococcal vaccine. Adults with asplenia or persistent complement component deficiencies should receive 2 doses of quadrivalent meningococcal conjugate (MenACWY-D) vaccine. The doses should be obtained at least 2 months apart. Microbiologists working with certain meningococcal bacteria, recruits, people at risk during an outbreak, and people who travel to or live in countries with a high rate of meningitis should be immunized. A first-year college student up through age 21 years who is living in a residence jay should receive a dose if he or she did not receive a dose on or after his or her 16th birthday. Adults who have certain high-risk conditions should receive one or more doses of vaccine. Hepatitis A vaccine. Adults who wish to be protected from this disease, have certain high- risk conditions, work with hepatitis A-infected animals, work in hepatitis A research labs, or travel to or work in countries w ith a high rate of hepatitis A should be immunized. Adults who were previously unvaccinated and who anticipate close contact with an international adoptee during the first 60 days after arrival in the [place] from a country with a high rate of hepatitis A should be immunized. Hepatitis B vaccine. Adults who wish to be protected from this disease, have certain high- risk conditions, may be exposed to blood or other infectious body fluids, are household contacts or sex partners of hepatitis B positive people, are clients or workers in certain care facilities, or travel to or work in countries with a high rate of hepatitis B should be immunized. Haemophilus influenzae type b (Hib) vaccine. A previously unvaccinated person with asplenia or sickle cell disease or having a scheduled splenectomy should receive 1 dose of Hib vaccine. Regardless of previous immunization, a recipient of a hematopoietic stem cell transplant should receive a 3-dose series 612 months after his or her successful transplant. Hib vaccine is not recommended for adults with HIV infection. Document Released: 01/12/2005 Document Revised: 02/17/2014 Document Reviewed: 12/10/2013 [facility] Patient Information 2014 [facility]. Family Medicine Blood Glucose Monitoring, Adult Monitoring your blood glucose (also know as blood sugar) helps you to manage your diabetes. It also helps you and your health care provider monitor your diabetes and determine how well your treatment plan is working. WHY SHOULD YOU MONITOR YOUR BLOOD GLUCOSE? It can help you understand how food, exercise, and medicine affect your blood glucose. It allows you to know what your blood glucose is at any given moment. You can quickly tell if you are having low blood glucose (hypoglycemia ) or high blood glucose (hyperglycemia ). It can help you and your health care provider know how to adjust your medicines. It can help you understand how to manage an illness or adjust medicine for exercise. WHEN SHOULD YOU TEST? Your health care provider will help you decide how often you should check your blood glucose. This may depend on the type of diabetes you have, your diabetes control, or the types of medicines you are t aking. Be sure to write down all of your blood glucose readings so that this information can be reviewed with your health care provider. See below for examples of testing times that your health care provider may suggest. Type 1 Diabetes Test 4 times a day if you are in good control, using an insulin pump, or perform multiple daily injections. If your diabetes is not well-controlled or if you are sick, you may need to monitor more often. It is a good idea to also monitor: Before and after exercise. Between meals and 2 hours after a meal. Occasionally between 2:00 to 3:00 am. Type 2 Diabetes It can vary with each person, but generally, if you are on insulin, test 4 times a day. If you take medicines by mouth (orally ), test 2 times a day. If you are on a controlled diet, test once a day. If your diabetes is not well controlled or if you are sick, you may need to monitor more often. HOW TO MONITOR YOUR BLOOD GLUCOSE Supplies Needed Blood glucose meter. Test strips for your meter. Each meter has its own strips. You must use the strips that go with your own meter. A pricking needle (lancet ). A device that holds the lancet (lancing device ). A journal or log book to write down your results. Procedure Wash your hands with soap and water. Alcohol is not preferred. Prick the side of your finger (not the tip) with the lancet. Gently milk the finger until a small drop of blood appears. Follow the instructions that come with your meter for inserting the test strip, applying blood to the strip, and using your blood glucose meter. Other Areas to Get Blood for Testing Some meters allow you to use other areas of your body (other than your finger) to test your blood. These areas are called alternative sites. The most common alternative sites are: The forearm. The thigh. The back area of the lower leg. The palm of the hand. The blood flow in these areas is slower. Therefore, the blood glucose values you get may be delayed, and the numbers are different from what you would get from your fingers. Do not use alternative sites if you think you are having hypoglycemia. Your reading will not be accurate. Always use a finger if you are having hypoglycemia. Also, if you cannot feel your lows (hypoglycemia unawareness ), always use your fingers for your blood glucose checks. ADDITIONAL TIPS FOR GLUCOSE MONITORING Do not reuse lancets. Always carry your supplies with you. All blood glucose meters have a 24-hour "hotline" number to call if you have questions or need help. Adjust (calibrate ) your blood glucose meter with a control solution after finishing a few boxes of strips. BLOOD GLUCOSE RECORD KEEPING It is a good idea to keep a daily record or log of your blood glucose readings. Most glucose meters, if not all, keep your glucose records stored in the meter. Some meters come with the ability to downl oad your records to your home computer. Keeping a record of your blood glucose readings is especially helpful if you are wanting to look for patterns. Make notes to go along with the blood glucose readi ngs because you might forget what happened at that exact time. Keeping good records helps you and your health care provider to work together to achieve good diabetes management. Document Released: 10/25/2004 Document Revised: 06/25/2014 Document Reviewed: 03/17/2014 [facility] Patient Information 2014 [facility]. Diabetes and Foot Care Diabetes may cause you to have problems because of poor blood supply ( circulation ) to your feet and legs. This may cause the skin on your feet to become thinner, break easier, and heal more slowly. You r skin may become dry, and the skin may peel and crack. You may also have nerve damage in your legs and feet causing decreased feeling in them. You may not notice minor injuries to your feet that could lead to infections or more serious problems. Taking care of your feet is one of the most important things you can do for yourself. HOME CARE INSTRUCTIONS Wear shoes at all times, even in the house. Do not go barefoot. Bare feet are easily injured. Check your feet daily for blisters, cuts, and redness. If you cannot see the bottom of your feet, use a mirror or ask someone for help. Wash your feet with warm water (do not use hot water) and mild soap. Then pat your feet and the areas between your toes until they are completely dry. Do not soak your feet as this can dry your skin. Apply a moisturizing lotion or petroleum jelly (that does not contain alcohol and is unscented) to the skin on your feet and to dry, brittle toenails. Do not apply lotion between your toes. Trim your toenails straight across. Do not dig under them or around the cuticle. File the edges of your nails with an emery board or nail file. Do not cut corns or calluses or try to remove them with medicine. Wear clean socks or stockings every day. Make sure they are not too tight. Do not wear knee-high stockings since they may decrease blood flow to your legs. Wear shoes that fit properly and have enough cushioning. To break in new shoes, wear them for just a few hours a day. This prevents you from injuring your feet. Always look in your shoes before you put them on to be sure there are no objects inside. Do not cross your legs. This may decrease the blood flow to your feet. If you find a minor scrape, cut, or break in the skin on your feet, keep it and the skin around it clean and dry. These areas may be cleansed with mild soap and water. Do not cleanse the area with peroxide, alcohol, or iodine. When you remove an adhesive bandage, be sure not to damage the skin around it. If you have a wound, look at it several times a day to make sure it is healing. Do not use heating pads or hot water bottles. They may burn your skin. If you have lost feeling in your feet or legs, you may not know it is happening until it is too late. Make sure your health care provider performs a complete foot exam at least annually or more often if you have foot problems. Report any cuts, sores, or bruises to your health care provider immediately. SEEK MEDICAL CARE IF: You have an injury that is not healing. You have cuts or breaks in the skin. You have an ingrown nail. You notice redness on your legs or feet. You feel burning or tingling in your legs or feet. You have pain or cramps in your legs and feet. Your legs or feet are numb. Your feet always feel cold. SEEK IMMEDIATE MEDICAL CARE IF: There is increasing redness, swelling, or pain in or around a wound. There is a red line that goes up your leg. Pus is coming from a wound. You develop a fever or as directed by your health care provider. You notice a bad smell coming from an ulcer or wound. Document Released: 10/20/2001 Document Revised: 06/25/2014 Document Reviewed: 04/01/2014 [facility] Patient Information 2014 [employer]. No follow up information was provided. Extracted from: Title: Office Visit Note Author: Dipesh Bauman MD Date: 05/05/15 Assessment/Plan Atopic eczema Continue with the current medications. Ordered: Office Visit Level 4 Est 38396 Essential hypertension (disorder) Ordered: Office Visit Level 4 Est 32367 Hypothyroidism (disorder) Ordered: Office Visit Level 4 Est 10837 Jaw Pain Refer to ENT for further evaluation of the mass and will again start treatment with a antibiotic. Ordered: Office Visit Level 4 Est 93005 Morbid obesity (disorder) Ordered: Office Visit Level 4 Est 60831 Need for pneumococcal vaccination Ordered: Office Visit Level 4 Est 49677 Need for zoster vaccine Sleep apnea Ordered: Office Visit Level 4 Est 51938 Type II diabetes mellitus uncontrolled (finding) Ordered: Office Visit Level 4 Est 24065
--- OUTSIDE RECORDS SUMMARY | 2017-09-08 12:47 | External Medical Summary | Referral Summary ---
:1945 Author Organization [facility] Address [address] [place] [address] TOM Gunter [id number] Care Team Providers Name Role Phone Dipesh Bauman Primary Care Physician Encounter VC Date(s): 03/27/15 - 03/27/15 [facility] [address] [place] [address] T[place] Gunter [id number] [id number] Discharge Diagnosis: Periorbital edema Discharge Disposition: 01-Home or Self Care Attending Physician: Don Foster MD Admitting Physician: Don Foster MD Vital Signs Most recent to oldest [Reference Range]: 1 Temperature Tympanic [36.6-38.1 degC] 36.3 degC *LOW* (03/27/15 1:52 PM) Peripheral Pulse Rate [60-100 bpm] 72 bpm (03/27/15 1:52 PM) Respiratory Rate [14-20 br/min] 16 br/min (03/27/15 1:52 PM) Blood Pressure [90-140/60-90 mmHg] 122/84 mmHg (03/27/15 1:52 PM) SpO2 93 % (03/27/15 1:52 PM) Problem List Condition Effective Dates Status [...] q8hr, # 30 caps, 0 Refill(s), Pharmacy: [id number], 1 caps Oral q8hr Start Date: 06/03/15 Status: Ordereddoxepin 100 mg oral capsule 100 mg 1 caps, Oral, Bedtime (once a day), # 30 caps, 5 Refill(s), Pharmacy: [id number],1 caps Oral Bedtime (once a day) Start Date: 05/05/15 Status: OrderedDULoxetine 60 mg oral delayed release capsule See Instructions, TAKE ONE CAPSULE BY MOUTH ONCE DAILY, # 30 caps, 2 Refill(s), eRx: [id number], TAKE ONE CAPSULE BY MOUTH [...] See Instructions, Supply Start Date: 10/20/14 Status: Orderedondansetron 4 mg oral tablet 4 mg 1 tabs, Oral, q4hr, as needed for nausea/vomiting, 0 Refill(s) Start Date: 09/17/15 Status: OrderedoxyCODONE-acetaminophen 7.5 mg-325 mg oral tablet [...] Extracted from: Title: Ambulatory Patient Education Author: Don Foster MD Date: Family Medicine Edema Edema is a buildup of fluids. It is most common in the feet, ankles, and legs. This happens more as a person ages. It may affect one or both legs. HOME CARE Raise (elevate ) the legs or ankles above the level of the heart while lying down. Avoid sitting or standing still for a long time. Exercise the legs to help the puffiness (swelling ) go down. A low-salt diet may help lessen the puffiness. Only take medicine as told by your doctor. GET HELP RIGHT AWAY IF: You develop shortness of breath or chest pain. You cannot breathe when you lie down. You have more puffiness that does not go away with treatment. You develop pain or redness in the areas that are puffy. You have a temperature by mouth above 102 F (38.9 C), not controlled by medicine. You gain 03 lb/1.4 kg or more in 1 day or 05 lb/2.3 kg in a week. MAKE SURE YOU: Understand these instructions. Will watch your condition. Will get help right away if you are not doing well or get worse. Document Released: 04/10/2009 Document Revised: 01/14/2013 Document Reviewed: 04/10/2009 ExitCare Patient Information 2014 [employer], [employer]. Follow Up With: Where: When: Dipesh Bauman [address] [place] [address] Drive; [facility] TOM Torrez [phone] Business (1) Within 3 to 5 days, only if needed Comments: Extracted from: Title: Office Visit Note Author: Don Foster MD Date: 03/27/15 Assessment/Plan Periorbital edema She will continue Zyrtec. She was advised to discontinue lisinopril if she develops any evidence of angioedema elsewhere. She will return to clinic as needed. Ordered: Office Visit Level 3 Est 70243
--- OUTSIDE RECORDS SUMMARY | 2017-09-08 12:48 | External Medical Summary | Referral Summary ---
:1945 Author Organization [facility] Address [address] [place] [address] Care Team Providers Name Role Phone Mitul Dipesh Moreland Primary Care Physician Encounter VC Date(s): 09/04/15 - 09/04/15 [facility] [address] [place] [address]- Discharge Diagnosis: Bilateral sensorineural hearing loss Discharge [...] q8hr, # 30 caps, 0 Refill(s), Pharmacy: [id number], 1 caps Oral q8hr Start Date: 06/03/15 Status: Ordereddoxepin 100 mg oral capsule 100 mg 1 caps, Oral, Bedtime (once a day), # 30 caps, 5 Refill(s), Pharmacy: [id number],1 caps Oral Bedtime (once a day) Start Date: 05/05/15 Status: OrderedDULoxetine 60 mg oral delayed release capsule See Instructions, TAKE ONE CAPSULE BY MOUTH ONCE DAILY, # 30 caps, 2 Refill(s), eRx: [id number], TAKE ONE CAPSULE [...]
--- NOTE | 2017-09-08 13:29 | Magnetic Resonance Report ---
Indication: possible cva PROCEDURE: MR head/brain wo con: Encounter: Initial Comparisons: Head CT from dilated today Technique: Multiplanar, multisequence, MR imaging of the head without contrast was acquired. FINDINGS: Mild motion artifact. Tiny focus of acute diffusion restriction in the periventricular right posterior frontal lobe seen on axial diffusion-weighted image #16. This lesion has corresponding T2/FLAIR hyperintensity measuring 0.8 x 0.5 cm. The left occipital lesion suggested by CT does not have an MR correlate and likely represents artifact from partial volume averaging. The ventricles are of normal size, shape, and contour for the patient's age. There are small nonspecific punctate areas of T2-weighted and T2 FLAIR weighted signal abnormality in the deep frontoparietal white matter that most likely represent small vessel ischemic disease. This is of a degree that is considered to be normal for the patient's age. The brain stem, cerebellum, and cerebral hemispheres otherwise have a normal morphologic appearance as well as MR signal intensity on all pulse sequences. There is no evidence of an intracranial mass lesion, intracranial hemorrhage, or hydrocephalus. The visualized portions of the orbits, calvarium, paranasal sinuses, and skull base demonstrate no significant abnormality. IMPRESSION: Tiny acute infarct in the periventricular right posterior frontal lobe in the MCA territory. .
--- NOTE | 2017-09-08 13:34 | Emergency Department Report ---
General Adult HPI - General Chief complaint: Neuro Symptoms/Deficit Stated complaint: blurred vision,trouble speaking Time Seen by Provider: 09/08/17 11:54 - History of Present Illness HPI narrative: 72-year-old female with sudden onset of slurred speech and blurred vision this morning. This occurred sometime between 8:30 and 10. Her was gone garage sailing and left at approximately 8:30. At the time he left she was normal. She thinks it occurred about 9:30 but is uncertain. She did take an extra antihistamine this morning but is never caused her to be sedated. She feels very tired and sleepy and has been slurring speech she also feels like the words are coming into her head but not processing properly no fever no chills no head trauma. No other body aches or issues. - Related Data Home Medications Medication Instructions Recorded Confirmed Duloxetine HCl 60 mg PO DAILY #0 07/02/15 09/08/17 Doxepin HCl 100 mg PO PRN #30 cap 11/29/16 09/08/17 Augmentin (amoxicillin 875 1 tab PO BID #0 tab 05/23/17 09/08/17 mg-potassium clavulanate 125 mg) tablet Humalog (insulin lispro) 100 1 dose SQ .PUMP 05/23/17 09/08/17 unit/mL SQ Zyrtec (Cetirizine) 10 mg tablet 10 mg PO DAILY tab 05/23/17 09/08/17 levothyroxine 175 mcg tablet 175 mcg PO DAILY tab 05/23/17 09/08/17 lisinopril 20 mg tablet 20 mg PO DAILY tab 05/23/17 09/08/17 Ciprofloxacin/Dexameth Otic 1 drop EACH EYE PRN 09/08/17 09/08/17 [Ciprodex] HydroCHLOROthiazide [Microzide] 12.5 mg PO DAILY 09/08/17 09/08/17 Levothyroxine Tab [Synthroid] 175 mcg PO 2XW 09/08/17 09/08/17 Oxycodone/Acetaminophen 5/325 1 tab PO PRN PRN 09/08/17 09/08/17 [Percocet 5/325] Allergies Allergy/AdvReac Type Severity Reaction Status Date / Time No Known Allergies Allergy Verified 09/08/17 12:13 Review of Systems All systems: reviewed and negative except as stated [facility] Medical History (Last Reviewed 06/06/17 @ 14:07 by Driss Kapoor MD) Diabetes mellitus type 2, uncontrolled, without complications (Chronic Medical ~ 2002) Appears to need more supper insulin. Diabetic nephropathy associated with type 2 diabetes mellitus (Chronic Medical) Need to recheck albuminuria. Callus of foot (Chronic Medical) Needs more emollient. senior living current use of insulin (Chronic Medical) Hypothyroidism (Chronic Medical ~1994) Hypertension (Chronic Medical) Good control. Morbid obesity with BMI of 40.0-44.9, adult (Chronic Medical) Family History: Family History (Last Reviewed 06/06/17 @ 14:07 by Driss Kapoor MD) Father , 1994 Lung cancer Mother Heart disease Thyroid disease Paternal Uncle Diabetes Sister Rheumatoid arthritis Thyroid disease Sister Rheumatoid arthritis - Social History Smoking status: Current every day smoker Physical Exam - Limitations Limitations: no limitations - General General appearance: lethargic - Normal Exams: Head:: Normocephalic without trauma Chest/Respirations:: Clear all crooks, with good airflow, and symmetry bilaterally Cardiovascular:: Regular rate and rhythm, without murmur or gallop, Pulses 2+ all extremities, capillary refill, <2 seconds all extremities Abdomen:: Bowel sounds positive, soft, non-tender, non-distended, no hepatosplenomegaly, masses or bruits noted Neurological:: and oriented, cranial nerves, motor/sensory/cerebellar, exams w/ o gross deficits, to observation - Neurological Exam Neurological exam: Present: oriented X3, CN II-XII intact, reflexes normal, other (patient's speech is slurred and she is definitely exhibiting moderate sedation/fatigue). Absent: motor sensory deficit Course Vital Signs Temperature 98.2 F 09/08/17 11:40 Pulse Rate 87 09/08/17 11:40 Respiratory Rate 18 09/08/17 11:40 Blood Pressure 147/68 H 09/08/17 11:40 Pulse Oximetry 93 09/08/17 11:40 Temperature 98.2 F 09/08/17 11:40 Pulse Rate 81 09/08/17 12:30 Respiratory Rate 15 09/08/17 12:30 Blood Pressure 130/67 09/08/17 12:30 Pulse Oximetry 92 09/08/17 12:30 Medical Decision Making - [facility] Narrative Medical decision making narrative: Labs returned normal, CT shows possible posterior parietal/occipital punctate lesion. MRI does show small effusion. Teleneurology was consult and based on improvement in her exam and timing, recommendation was not to give TPA. I certainly many agreement with that as well this point. Patient are aware that decision. She is being evaluated by hospitalist for possible hospital admission. - Lab Data Result diagrams: 09/08/17 11:58 09/08/17 11:58 Lab Results 09/08/17 09/08/17 09/08/17 Range/Units 11:58 11:58 13:19 WBC 8.1 (4.5-11.0) T/MM3 RBC 4.45 (4.00-5.20) M/MM3 Hgb 12.0 (12-16) GM/DL Hct 39.0 (36-46) % MCV 87.6 (80-100) UM3 MCH 27.0 (26-34) UUG MCHC 30.8 L (31-37) GM/DL RDW Std Deviation 40.3 (36.9-50.2) FL Plt Count 367 (130-400) T/MM3 MPV 9.1 L (9.4-12.4) UM3 Immature Gran % (Auto) 0.2 (0.0-0.5) % Neut % (Auto) 72.4 H (33-66) % Lymph % (Auto) 18.3 L (23-45) % [place] % (Auto) 5.9 (0-9.0) % Eos % (Auto) 3.0 (0-4) % Baso % (Auto) 0.2 (0-2) % Neut # (Auto) 5.8 (1.8-7.7) T/MM3 Lymph # (Auto) 1.5 (1-4.8) T/MM3 [place] # (Auto) 0.5 (0-0.8) T/MM3 Eos # (Auto) 0.2 (0-0.5) T/MM3 Baso # (Auto) 0.0 (0-0.2) T/MM3 Abs Immat Gran (auto) 0.02 (0.00-0.03) T/MM3 Turbidity < 20 (0-20) Sodium 137 (134-144) MEQ/L Potassium 4.0 (3.6-5) MEQ/L Chloride 98 (98-107) MEQ/L Carbon Dioxide 34 H (22-30) MEQ/L Anion Gap 5 (5-15) MEQ/L BUN 8.0 (7-17) MG/DL Creatinine 0.6 L (0.7-1.2) MG/DL GFR Calculation 99 BUN/Creatinine Ratio 13 (6-26) RATIO Glucose 185 H (65-110) MG/DL Calculated Osmolality 267 (261-280) MOSM/KG Calcium 9.6 (8.4-10.2) MG/DL Total Bilirubin 0.50 (0.20-1.30) MG/DL Icterus Index < 2 (0-7) AST 18 (14-36) U/L ALT 24 (9-52) U/L Alkaline Phosphatase 105 (38-126) U/L Troponin I < 0.012 (0-0.12) ng/ml Total Protein 8.7 H (6.3-8.2) G/DL Albumin 4.3 (3.5-5.0) G/DL Globulin 4.4 H (2.4-3.6) G/DL Albumin/Globulin Ratio 1.0 L (1.1-2.2) RATIO Specimen Hemolysis < 15 (0-25) Ur Collection Type Urine, catheter Urine Color Yellow (YELLOW) Urine Clarity Sl cloudy Urine pH 7.0 (5.0-8.0) Ur Specific [place] <=1.005 L (1.015-1.025) Urine Protein Negative (NEGATIVE) Urine Glucose (UA) Negative (NEGATIVE) Urine Ketones Negative (NEGATIVE) Urine Occult Blood 2+ A (NEGATIVE) Urine Nitrate Negative (NEGATIVE) Urine Bilirubin Negative (NEGATIVE) Urine Urobilinogen 0.2 (NORMAL) EU/DL Ur Leukocyte Esterase Negative (NEGATIVE) Disposition Prescriptions: No Action Doxepin HCl 100 mg PO PRN #30 cap HydroCHLOROthiazide [Microzide] 12.5 mg PO DAILY Ciprofloxacin/Dexameth Otic [Ciprodex] 1 drop EACH EYE PRN Duloxetine HCl 60 mg PO DAILY #0 Levothyroxine Tab [Synthroid] 175 mcg PO 2XW Oxycodone/Acetaminophen 5/325 [Percocet 5/325] 1 tab PO PRN PRN PRN Reason: Pain levothyroxine 175 mcg tablet 175 mcg PO DAILY tab lisinopril 20 mg tablet 20 mg PO DAILY tab Zyrtec (Cetirizine) 10 mg tablet 10 mg PO DAILY tab Humalog (insulin lispro) 100 unit/mL SQ 1 dose SQ .PUMP Augmentin (amoxicillin 875 mg-potassium clavulanate 125 mg) tablet 1 tab PO BID #0 tab Referrals: Flavio Kapadia MD [Family Provider] - - Seen By: physician
[2017-09-08] MEDS ORDERED: ACETAMINOPHEN 325 MG TABLET PO PRN (14:26)
[2017-09-08 14:42] VITALS: BMI 42.4
--- NOTE | 2017-09-08 14:44 | History & Physical Report ---
<Mame Mckenzie V - Last Filed: 09/08/17 14:59> History of Present Illness Date: 09/08/17 Chief complaint: Slurred speech, Vision changes HPI: Mara is a 72 year old female who has a sudden onset of slurred speech and vision trouble this morning between 830 and 10 a.m. left the home at approximately 830 and when he returned before 10am found patient to have a change in speech with increased lethargy. Patient was then brought to the emergency room for further evaluation and treatment. CBC is normal, chemistry panel, overall unremarkable, troponin negative, urinalysis with 2+ blood, 5-10 rbc's and 3+ bacteria. Twelve-lead EKG does show sinus rhythm with first-degree AV block. Initial CT of the brain did not show any intracranial hemorrhage, however, did show a small area in the left occipital lobe which was suspicious for acute ischemia. This was followed by an MRI of the brain that did reveal an acute infarct in the right posterior frontal lobe in the MCA territory. Mara is seen while in the ER. She is alert however is drowsy and falls asleep during conversation and exam. Patient's reports that she did take doxepin 100 milligrams that she uses when necessary. Initially he thought her level of sedation, and slurred speech, was related to this medication. However, he thinks that she has had this medication in the past without this effect. Patient does wish to be a Full Code. 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 Appendectomy. . 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 Medications Home Medications Medication Instructions Recorded Confirmed Type Duloxetine HCl 60 mg PO DAILY #0 07/02/15 09/08/17 History Doxepin HCl 100 mg PO PRN #30 cap 11/29/16 09/08/17 History Augmentin (amoxicillin 875 1 tab PO BID #0 tab 05/23/17 09/08/17 History mg-potassium clavulanate 125 mg) tablet Humalog (insulin lispro) 100 1 dose SQ .PUMP 05/23/17 09/08/17 History unit/mL SQ Zyrtec (Cetirizine) 10 mg tablet 10 mg PO DAILY tab 05/23/17 09/08/17 History levothyroxine 175 mcg tablet 175 mcg PO DAILY tab 05/23/17 09/08/17 History lisinopril 20 mg tablet 20 mg PO DAILY tab 05/23/17 09/08/17 History Ciprofloxacin/Dexameth Otic 1 drop EACH EYE PRN 09/08/17 09/08/17 History [Ciprodex] HydroCHLOROthiazide [Microzide] 12.5 mg PO DAILY 09/08/17 09/08/17 History Levothyroxine Tab [Synthroid] 175 mcg PO 2XW 09/08/17 09/08/17 History Oxycodone/Acetaminophen 5/325 1 tab PO PRN PRN 09/08/17 09/08/17 History [Percocet 5/325] Allergies Allergy/AdvReac Type Severity Reaction Status Date / Time No Known Allergies Allergy Verified 09/08/17 12:13 Exam Vital Signs: Temperature 97.8 F 09/08/17 14:26 Pulse Rate 79 09/08/17 14:26 Respiratory Rate 18 09/08/17 14:26 Blood Pressure 130/67 09/08/17 12:30 Pulse Oximetry 92 09/08/17 14:26 Height/Weight/BMI: Height 1.55 m Weight 101.8 kg Body Mass Index 42.4 - Constitutional Present: no acute distress, well nourished, well developed - Routine HEENT Exam Eye: Present: EOMI ENT: Present: mucous membranes moist, dentition normal - Routine Respiratory Exam Present: CTA bilaterally. Absent: wheezes - Routine Cardiovascular Exam Present: RRR, S1, S2. Absent: murmur - Routine Abdominal Exam Present: soft, normoactive bowel sounds, non distended. Absent: tenderness - Routine Extremities Exam Present: edema (Chronic lower extremity edema, chronic discoloration of bilateral lower extremity edema), pulses intact - Routine Back/Spine/Pelvis Exam Back/Spine: Present: full ROM - Routine Skin Exam Present: intact, dry, warm - Routine Neurological Exam Present: alert, oriented X3, CN II-XII intact, moving all extremities, vision grossly intact, hearing grossly intact. Absent: sensory deficit, motor deficit - Routine Psychiatric Exam Present: normal affect, cooperative Results - Labs CBC & Chem 7: 09/08/17 11:58 09/08/17 11:58 Assessment and Plan (1) Acute CVA (cerebrovascular accident) Current visit: Yes Status: Acute Assessment and Plan: Impression Acute CVA Slurred speech Diabetes- Insulin Pump Peripheral neuropathy Chronic osteomyelitis of the jaw bone- On Augmentin Hypothyroidism Hypertension Morbid obesity Plan Admit patient to outpatient observation under care of Dr. Rossi for acute CVA with slurred speech Consult placed to PT, OT and speech for acute evaluation Obtain echocardiogram, bilateral carotid Doppler and lipid panel for further acute workup. Monitor Accu-Cheks. Given patient's history of diabetes. Last HgbAIC was in 04.07. She has a insulin pump, and is followed by Dr. Kapoor routinely. Patient is chronically on Augmentin for long-term treatment of osteomyelitis of her mandible. Monitor patient. Cardiac telemetry SCDs to bilateral lower extremity for DVT prophylaxis Continue home medications, her blood pressure control and continue on lisinopril , and hydrochlorothiazide April does wish to be a full code and this orders written. Will discuss further orders and plan of care with attending, Dr. Rossi. At time of discharge medical care will return to primary care provider, Dr. Kapadia DVT Prophylaxis: SCD's Resuscitation Status: Full Code Hospital Course Summary Disclaimer: The visit summary below is not to be considered part of the above Progress Note. Hospital Course: 09/08/17 Impression Acute CVA Slurred speech Diabetes- Insulin Pump Peripheral neuropathy Chronic osteomyelitis of the jaw bone- On Augmentin Hypothyroidism Hypertension Morbid obesity Plan Admit patient to outpatient observation under care of Dr. Rossi for acute CVA with slurred speech Consult placed to PT, OT and speech for acute evaluation Obtain echocardiogram, bilateral carotid Doppler and lipid panel for further acute workup. Monitor Accu-Cheks. Given patient's history of diabetes. Last HgbAIC was in June 11.2. She has a insulin pump, and is followed by Dr. Kapoor routinely. Patient is chronically on Augmentin for long-term treatment of osteomyelitis of her mandible. Monitor patient. Cardiac telemetry SCDs to bilateral lower extremity for DVT prophylaxis Continue home medications, her blood pressure control and continue on lisinopril , and hydrochlorothiazide April does wish to be a full code and this orders written. Will discuss further orders and plan of care with attending, Dr. Rossi. At time of discharge medical care will return to primary care provider, Dr. Kapadia <Chris Rossi D - Last Filed: 09/08/17 16:39> History of Present Illness Date: 09/08/17 [facility] Patient Stated Medical History Cerebrovascular Accident Yes Cataracts Yes Other HEENT Yes: infection of right jawbone Hypertension Yes Diabetes Mellitus Type 2 Yes Clinic Medical History (Last Reviewed 06/06/17 @ 14:07 by Driss Kapoor MD) Acute CVA (cerebrovascular accident) (Acute Medical) Diabetes mellitus type 2, uncontrolled, without complications (Chronic Medical ~ 2002) Appears to need more supper insulin. Diabetic nephropathy associated with type 2 diabetes mellitus (Chronic Medical) Need to recheck albuminuria. Callus of foot (Chronic Medical) Needs more emollient. detention current use of insulin (Chronic Medical) Hypothyroidism (Chronic Medical ~1994) Hypertension (Chronic Medical) Good control. Morbid obesity with BMI of 40.0-44.9, adult (Chronic Medical) Family History: Family History (Last Reviewed 06/06/17 @ 14:07 by Driss Kapoor MD) Father , 1994 Lung cancer Mother Heart disease Thyroid disease Paternal Uncle Diabetes Sister Rheumatoid arthritis Thyroid disease Sister Rheumatoid arthritis Exam Vital Signs: Temperature 97.8 F 09/08/17 14:26 Pulse Rate 79 09/08/17 14:26 Respiratory Rate 18 09/08/17 14:26 Blood Pressure 153/79 H 09/08/17 14:50 Pulse Oximetry 92 09/08/17 14:26 Height/Weight/BMI: Height 1.55 m Weight 101.8 kg Body Mass Index 42.4 Results - Labs CBC & Chem 7: 09/08/17 11:58 09/08/17 11:58 Assessment and Plan (1) Acute CVA (cerebrovascular accident) Current visit: Yes Status: Acute Assessment and Plan: Impression Acute CVA Slurred speech Diabetes- Insulin Pump Peripheral neuropathy Chronic osteomyelitis of the jaw bone- On Augmentin Hypothyroidism Hypertension Morbid obesity have independently interviewed and examined pt. Chart reviewed. 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 Care plan developed with my supervision; agree with above. Presents to ED secondary to slurred speech and difficulty getting her words to come out. Onset this morning. DID take ASA at home (for pain). No neurological disturbance of arms or legs. No trauma. Is diabetic with HTN. Seen in ED. MRI does show small area of acute infarct. Patient placed in OBS for further evaluation. Lungs: clear CV: regular AB: soft nt/nd Neuro: CN II-XII intact. No focal deficits. Speech normalized by the time of my interview and exam. Psych: awake alert appropriate. Communicates well. Plan: OBS. With area of Stroke occurring despite fairly routine ASA use at home , recommend Plavix therapy. Check Doppler neck and ECHO. Check lipid profile. Will hold on a1c as has upcoming apt with Dr Kapoor and suspect will be checked at that time. Check TSH due to fatigue. Do suspect speech problem from earlier was secondary to Doxepin (pt thinks may has taken a double dose)-will hold Doxepin overnight. PT/OT evaluation. Speech has seen and cleared swallow and communication. Hospital Course Summary Disclaimer: The visit summary below is not to be considered part of the above Progress Note.
[2017-09-08] MEDS ORDERED: ONDANSETRON 4 MG/2 ML INJECTION IVP PRN (15:06)
[2017-09-08] MEDS ORDERED: Oxycodone/Acetaminophen 5/325 1 TAB PO PRN (15:07)
[2017-09-08] MEDS ORDERED: INSULIN LISPRO SQ SCH (15:15)
[2017-09-08] MEDS ORDERED: BISACODYL 10 MG SUPPOSITORY RECTALLY PRN (15:35)
[2017-09-08] MEDS ORDERED: INSULIN PUMP MC SCH (15:45)
[2017-09-08] MEDS: NS 1,000 ML IV SCH (16:26)
[2017-09-08] MEDS ORDERED: MENTHOL COUGH DROPS (RICOLA) MM PRN (17:42)
[2017-09-08] MEDS: CLOPIDOGREL 75 MG TABLET PO SCH (18:16)
[2017-09-08] MEDS: CLAV PO SCH (18:17)
[2017-09-08] MEDS: AMOX PO SCH (18:17)
[2017-09-09 02:10] VITALS: O2SAT 93
[2017-09-09] MEDS: NS 1,000 ML IV SCH (05:28)
[2017-09-09] MEDS ORDERED: LEVOTHYROXINE 175 MCG PO SCH (06:30)
[2017-09-09 07:35] VITALS: BP 145/69; RESP 18; TEMP 98.1
[2017-09-09] MEDS ORDERED: HYDROCHLOROTHIAZIDE 12.5 MG PO SCH (08:00)
[2017-09-09] MEDS: CLOPIDOGREL 75 MG TABLET PO SCH (08:26)
[2017-09-09] MEDS: AMOX PO SCH (08:27)
[2017-09-09] MEDS: CLAV PO SCH (08:27)
[2017-09-09] MEDS ORDERED: DULOXETINE 60 MG PO SCH (09:00)
[2017-09-09] MEDS ORDERED: LISINOPRIL 20 MG TABLET PO SCH (09:00)
--- NOTE | 2017-09-09 11:55 | Progress Note ---
- Date 09/09/17 Subjective: F/U: Acute CVA, Slurred speech. Doing well this morning. Speech to baseline. Communicating well. No other neurological problems. Breathing well. Eating well. No chest pain. Ambulating without difficulty. Objective Vital signs: Temperature 98.1 F 09/09/17 07:34 Pulse Rate 83 09/09/17 07:34 Respiratory Rate 18 09/09/17 07:34 Blood Pressure 145/69 H 09/09/17 07:34 Pulse Oximetry 93 09/09/17 07:34 Height/Weight/BMI: Height 1.55 m Weight 101.5 kg Body Mass Index 42.4 - Constitutional Present: no acute distress, well nourished, well developed, morbidly obese, cooperative - Routine HEENT Exam Head: Present: normocephalic, atraumatic Eye: Present: EOMI, PERRL. Absent: conjunctival icterus ENT: Present: mucous membranes moist - Routine Respiratory Exam Present: CTA bilaterally. Absent: rales, respiratory distress, rhonchi, wheezes , crackles - Routine Cardiovascular Exam Present: RRR, no murmur - Routine Abdominal Exam Present: soft, normoactive bowel sounds, non distended, non tender - Routine Extremities Exam Present: cyanosis, clubbing, edema, pulses intact - Routine Musculoskeletal Exam Musculoskeletal: Present: no clubbing or cyanosis, normal strength - Routine Skin Exam Present: dry, warm - Routine Neurological Exam Present: alert, oriented X3, CN II-XII intact, moving all extremities, vision grossly intact, hearing grossly intact, normal speech. Absent: motor deficit, altered mental status - Routine Psychiatric Exam Present: normal affect, normal thought process, cooperative, good insight, good judgment. Absent: anxious, agitated Results - Labs CBC & Chem 7: 09/09/17 05:11 09/09/17 05:11 Assessment and Plan (1) Acute CVA (cerebrovascular accident) Current visit: Yes Status: Acute Assessment and Plan: Impression Acute CVA - Tiny acute infarct in the periventricular right posterior frontal lobe in the MCA territory Slurred speech Diabetes- Insulin Pump Peripheral neuropathy Chronic osteomyelitis of the jaw bone- On Augmentin Hypothyroidism Hypertension Morbid obesity with BMI 42.3 Plan Speech has returned to baseline. Communicating well. Ambulating well. No new neurological changes. ECHO and Doppler results pending. Tolerating Plavix therapy. Will discharge to home. Continue Plavix 75mg daily for stroke prevention. Discussed risks of bleeding with patient. F/U with Dr Kapadia in 1 week Will need to reviewed Carotid Doppler report as is pending. See orders for details. Case discussed with CM and patient's . Time spent with care and discharge greater than 30 minutes. DVT Prophylaxis: SCD's Resuscitation Status: Full Code Hospital Course Summary Disclaimer: The visit summary below is not to be considered part of the above Progress Note. Hospital Course: 09/08/17 OBS admission Impression Acute CVA Slurred speech Diabetes- Insulin Pump Peripheral neuropathy Chronic osteomyelitis of the jaw bone- On Augmentin Hypothyroidism Hypertension Morbid obesity Plan Admit patient to outpatient observation under care of Dr. Rossi for acute CVA with slurred speech Consult placed to PT, OT and speech for acute evaluation Obtain echocardiogram, bilateral carotid Doppler and lipid panel for further acute workup. Monitor Accu-Cheks. Given patient's history of diabetes. Last HgbAIC was in June 11.. She has a insulin pump, and is followed by Dr. Kapoor routinely. Patient is chronically on Augmentin for long-term treatment of osteomyelitis of her mandible. Monitor patient. Cardiac telemetry SCDs to bilateral lower extremity for DVT prophylaxis Continue home medications, her blood pressure control and continue on lisinopril , and hydrochlorothiazide April does wish to be a full code and this orders written. At time of discharge medical care will return to primary care provider, Dr. Kapadia 09/09/17 Speech has returned to baseline. Communicating well. Ambulating well. No new neurological changes. ECHO and Doppler results pending. Tolerating Plavix therapy. Will discharge to home. Continue Plavix 75mg daily for stroke prevention. Discussed risks of bleeding with patient. F/U with Dr Kapadia in 1 week Will need to reviewed Carotid Doppler report as is pending. See orders for details.
[2017-09-09 12:03] VITALS: PULSE 76
--- NOTE | 2017-09-09 12:11 | Discharge Summary ---
Discharge Information Date of admission: 09/08/17 13:39 Anticipated date of discharge: 09/09/17 Attending Physician: Chris Rossi MD Primary care physician: Flavio Kapadia MD Consults: PT/OT - Discharge Diagnosis (1) Acute CVA (cerebrovascular accident) Status: Acute Discharge diagnosis Acute CVA - Tiny acute infarct in the periventricular right posterior frontal lobe in the MCA territory Associated conditions and complications Slurred speech - resolved Diabetes- Insulin Pump Peripheral neuropathy Chronic osteomyelitis of the jaw bone- On Augmentin Hypothyroidism Hypertension Morbid obesity with BMI 42.3 - Procedures Procedures: ECHO cardiogram - results pending at discharge Carotid Doppler - results pending at discharge - Laboratory Labs: Admit Lab 09/08/17 11:58 WBC 8.1 Hgb 12.0 Hct 39.0 MCV 87.6 Plt Count 367 Neut % (Auto) 72.4 H Lymph % (Auto) 18.3 L Admit Lab 09/08/17 11:58 Sodium 137 Potassium 4.0 Chloride 98 Carbon Dioxide 34 H Anion Gap 5 BUN 8.0 Creatinine 0.6 L GFR Calculation 99 BUN/Creatinine Ratio 13 Glucose 185 H Calculated Osmolality 267 Calcium 9.6 Total Bilirubin 0.50 AST 18 ALT 24 Alkaline Phosphatase 105 Troponin I < 0.012 Total Protein 8.7 H Albumin 4.3 Globulin 4.4 H Albumin/Globulin Ratio 1.0 L TSH results 09/08/17 11:58 TSH 1.78 Lipid profile results 09/09/17 05:11 Triglycerides 64 Cholesterol 128 L LDL Cholesterol, Calc 72.2 VLDL Cholesterol 12.8 HDL Cholesterol 43 Cholesterol/HDL Ratio 3.0 09/09/17 05:11 09/09/17 05:11 - Radiology Radiology: Date of Exam: 09/08/17 PROCEDURE: CT head/brain wo con FINDINGS: The ventricles are of normal size, shape, and contour for the patient's age. There is a small area of new low-attenuation in the left occipital lobe on image #21 measuring 0.8 cm in size. There are scattered areas of low attenuation in the white matter which most likely represent changes from chronic microvascular ischemia. The brainstem, cerebellum, and cerebral hemispheres otherwise have a normal morphology and CT attenuation. There is no evidence of midline displacement. No hemorrhage, mass effect, mass lesions, or edema is evident. The visualized portions of the skull base, midface, and calvarium demonstrate no abnormality. The paranasal sinuses are well aerated and free of significant disease. The tympanic and mastoid cavities appear normal. IMPRESSION: No acute intracranial hemorrhage. New small low attenuation focus in the left occipital lobe could represent acute, subacute or chronic ischemia. MRI can be performed for further evaluation of any acute ischemic process. Date of Exam: 09/08/17 PROCEDURE: MR head/brain wo con FINDINGS: Mild motion artifact. Tiny focus of acute diffusion restriction in the periventricular right posterior frontal lobe seen on axial diffusion-weighted image #16. This lesion has corresponding T2/FLAIR hyperintensity measuring 0.8 x 0.5 cm. The left occipital lesion suggested by CT does not have an MR correlate and likely represents artifact from partial volume averaging. The ventricles are of normal size, shape, and contour for the patient's age. There are small nonspecific punctate areas of T2-weighted and T2 FLAIR weighted signal abnormality in the deep frontoparietal white matter that most likely represent small vessel ischemic disease. This is of a degree that is considered to be normal for the patient's age. The brain stem, cerebellum, and cerebral hemispheres otherwise have a normal morphologic appearance as well as MR signal intensity on all pulse sequences. There is no evidence of an intracranial mass lesion, intracranial hemorrhage, or hydrocephalus. The visualized portions of the orbits, calvarium, paranasal sinuses, and skull base demonstrate no significant abnormality. IMPRESSION: Tiny acute infarct in the periventricular right posterior frontal lobe in the MCA territory. History of Present Illness HPI: Mara is a 72 year old female who has a sudden onset of slurred speech and vision trouble this morning between 830 and 10 a.m. left the home at approximately 830 and when he returned before 10am found patient to have a change in speech with increased lethargy. Patient was then brought to the emergency room for further evaluation and treatment. CBC is normal, chemistry panel, overall unremarkable, troponin negative, urinalysis with 2+ blood, 5-10 rbc's and 3+ bacteria. Twelve-lead EKG does show sinus rhythm with first-degree AV block. Initial CT of the brain did not show any intracranial hemorrhage, however, did show a small area in the left occipital lobe which was suspicious for acute ischemia. This was followed by an MRI of the brain that did reveal an acute infarct in the right posterior frontal lobe in the MCA territory. Mara is seen while in the ER. She is alert however is drowsy and falls asleep during conversation and exam. Patient's reports that she did take doxepin 100 milligrams that she uses when necessary. Initially he thought her level of sedation, and slurred speech, was related to this medication. However, he thinks that she has had this medication in the past without this effect. Patient does wish to be a Full Code. For complete details of the H&P refer to that document. Objective Vital signs: Temperature 98.1 F 09/09/17 07:34 Pulse Rate 76 09/09/17 08:00 Respiratory Rate 18 09/09/17 07:34 Blood Pressure 145/69 H 09/09/17 07:34 Pulse Oximetry 93 09/09/17 07:34 Height/Weight/BMI: Height 1.55 m Weight 101.5 kg Body Mass Index 42.4 Hospital Course This is a general summary of the patient's hospital course. For more details refer to the complete medical record. Hospital course: 09/08/17 OBS admission Impression Acute CVA Slurred speech Diabetes- Insulin Pump Peripheral neuropathy Chronic osteomyelitis of the jaw bone- On Augmentin Hypothyroidism Hypertension Morbid obesity Plan Admit patient to outpatient observation under care of Dr. Rossi for acute CVA with slurred speech Consult placed to PT, OT and speech for acute evaluation Obtain echocardiogram, bilateral carotid Doppler and lipid panel for further acute workup. Monitor Accu-Cheks. Given patient's history of diabetes. Last HgbAIC was in 04.07. She has a insulin pump, and is followed by Dr. Kapoor routinely. Patient is chronically on Augmentin for long-term treatment of osteomyelitis of her mandible. Monitor patient. Cardiac telemetry SCDs to bilateral lower extremity for DVT prophylaxis Continue home medications, her blood pressure control and continue on lisinopril , and hydrochlorothiazide April does wish to be a full code and this orders written. At time of discharge medical care will return to primary care provider, Dr. Kapadia 09/09/17 Speech has returned to baseline. Communicating well. Ambulating well. No new neurological changes. ECHO and Doppler results pending. Tolerating Plavix therapy. Will discharge to home. Continue Plavix 75mg daily for stroke prevention. Discussed risks of bleeding with patient. Add Zocor 40mg nightly for stroke prevention. F/U with Dr Kapadia in 1 week Will need to reviewed Carotid Doppler report as is pending. Will need routine monitoring of liver enzymes due to statin use. See orders for details. Time spent with patient: discharge greater than 30 minutes DVT Prophylaxis: SCD's Discharge Plan - Discharge Disposition Discharge Date: 09/09/17 Disposition: Discharged Home, Self-Care *Condition: Improved *Reason For Visit: slurred speech - Discharge Medications *Discharge Medications: New Simvastatin [Zocor] 40 mg PO HS #30 tab Clopidogrel [Plavix] 75 mg PO DAILY #30 tab Continue Doxepin HCl 100 mg PO PRN #30 cap HydroCHLOROthiazide [Microzide] 12.5 mg PO DAILY Ciprofloxacin/Dexameth Otic [Ciprodex] 1 drop EACH EYE PRN Duloxetine HCl 60 mg PO DAILY #0 Levothyroxine Tab [Synthroid] 175 mcg PO 2XW Oxycodone/Acetaminophen 5/325 [Percocet 5/325] 1 tab PO PRN PRN PRN Reason: Pain levothyroxine 175 mcg tablet 175 mcg PO DAILY tab lisinopril 20 mg tablet 20 mg PO DAILY tab Zyrtec (Cetirizine) 10 mg tablet 10 mg PO DAILY tab Humalog (insulin lispro) 100 unit/mL SQ 1 dose SQ .PUMP Augmentin (amoxicillin 875 mg-potassium clavulanate 125 mg) tablet 1 tab PO BID #0 tab - Discharge Packet/Instructions *Diet: 2000 KCAL ADA low sodium *Activity: As tolerated *Pain Management/Treatment: As prior to admission. Cautious use of ASA and Plavix - watch for bleeding/bruising *Wound Care: N/A *Expected Signs/Symptoms: Improvement of funtional status *Notify Physician if: New neurological changes - weakness, numbness, slurred speech, visual changes. *During Business Hours Contact: Dr Luinstra *After Business Hours Contact: Call [facility] [place] and have Dr Kapadia or his covering provider paged *Pending Lab/Results: Follow up w/your PCP - Referrals/Follow Up *Referrals/Follow Up: Flavio Kapadia MD [Family Provider] - 1 Week (Hospital follow up for CVA - check on Carotid Doppler and ECHO (Pending at discharge). Plavix started due to CVA occuring despite ASA use. Zocor started due to CVA. ) - Patient Handouts - Dismissal Complete Discharge Instructions are:: Complete Attestation Narriative - Attestation Attestation Narrative: 09/09/17 12:17 I have independently interviewed and examined patient prior to discharge. See my progress note from today for details. Medically stable for discharge to home.
--- NOTE | 2017-09-10 10:26 | Ultrasound Report ---
Indication: CVA PROCEDURE: US carotid doppler BI: TECHNIQUE: Grayscale, color and duplex Doppler imaging was performed of the carotid systems bilaterally. Velocities in cm/sec - validated velocity measurements with angiographic measurements, velocity criteria are extrapolated from diameter data as defined by the Society of Radiologists in Ultrasound Consensus Conference Radiology 2003; 229;340-346. RIGHT: PSV ICA 108 EDV ICA 32.6 PSV CCA 108 EDV CCA 23.2 PSV ECA 104 ICA Diameter reduction 10%-30% (1.0-1.2 PSV<110)% LEFT: PSV ICA 297 EDV ICA 55 PSV CCA 104 EDV CCA 181.6 PSV ECA 174 ICA Diameter reduction 80-90% The right vertebral artery is patent with cephalic flow. The left vertebral artery is patent with cephalic flow. Severe calcified and noncalcified plaque in the left carotid bulb with stenosis. Elevated velocities in the left ICA diffusely, worst proximally. No velocity elevation on the right. IMPRESSION: 1. 80-90% stenosis of the left proximal ICA. 2. No hemodynamically significant carotid stenosis on the right. .
[2017-09-11] MEDS ORDERED: LEVOTHYROXINE 175 MCG PO SCH
--- NOTE | 2017-09-12 07:47 | Echocardiogram ---
DATE OF PROCEDURE September 08, [address] Chris Rossi This is a two-dimensional echo with spectral Doppler, color-flow and M-mode. It was obtained in a patient with CVA. Left atrium is dilated. Left ventricle end-diastolic dimension is normal. Left ventricle wall thickness is increased. LV systolic function is normal with ejection fraction of about 55%. Right atrium is dilated. Right ventricle is normal. Aortic root dimension is normal. Mitral annulus is calcified. Mitral valve leaflets are normal with mild mitral regurgitation. Aortic valve she is normal. Tricuspid valve shows mild tricuspid regurgitation with normal estimated pulmonary artery systolic pressure of 29. Pulmonary valve shows trace of pulmonary insufficiency. There is no pericardial effusion. Grossly, there is no intracardiac thrombus or mass. IMPRESSION 1. Normal LV systolic function with ejection fraction of 55%. 2. Mitral annulus calcification with mild mitral regurgitation. 3. Biatrial dilation. 4. Concentric left ventricular hypertrophy. 5. Mild tricuspid regurgitation with normal estimated pulmonary artery systolic pressure of 29. 6. Trace of pulmonary insufficiency. MTDD
== END 2017-09-09 14:25 | disposition home or self-care (01) ==
LOC: ED 11:38 → MED 11:38
PROVIDERS: ADMIT Hospitalist; ATTEND Hospitalist